=== PATIENT | female | born 1960 | race Caucasian/White ===

== ENCOUNTER → 2017-09-27 | Outpatient (CLI) | payer BC | END | disposition home or self-care (01) | LOC: CVU 12:55 | PROVIDERS: ATTEND Internal Medicine Cardiovascular Disease | DX: I35.1 Nonrheumatic aortic (valve) insufficiency (principal); I10 Essential (primary) hypertension | CPT/HCPCS: 93306 ==

== ENCOUNTER 2020-01-23 15:01 | Outpatient (CLI) | payer BC | END 2020-01-23 23:59 | disposition home or self-care (01) | LOC: CVU 15:01 | PROVIDERS: ATTEND Internal Medicine Cardiovascular Disease | DX: I11.9 Hypertensive heart disease without heart failure (principal); I35.1 Nonrheumatic aortic (valve) insufficiency; I48.91 Unspecified atrial fibrillation | CPT/HCPCS: 93306 ==